=== PATIENT | male | born 1965 | race Caucasian/White ===

== ENCOUNTER 2022-05-23 08:18 | Outpatient (CLI) | payer BC ==
[2022-05-23 08:55] LABS: #Basophils 0.1 10x3/uL (0.0-0.2); #Eosinphils 0.1 10x3/uL (0.0-0.5); #Monocytes 0.4 10x3/uL (0.0-1.1); #Neutrophils 4.1 10x3/uL (1.5-8.4); %Basophils 0.8 % (0.0-2.0); %Eosinophils 1.6 % (0.0-6.0); %Lymphocytes 26.9 % (18.0-47.0); %Monocytes 6.1 % (0.0-10.0); %Neutrophils 64.3 % (40.0-75.0); Hemoglobin 15.5 g/dL (13.5-17.5); Mean Corpuscular HGB CONC 34.4 g/dL (32.0-36.0); Mean Corpuscular Hemoglobin 30.5 pg (27.0-33.0); Mean Corpuscular Volume 88.6 fl (81.2-95.1); Mean Platelet Volume 9.8 fl (7.4-10.4); Platelet Count 197 10x3/uL (150-450); RBC Distribution Width 12.7 % (11.5-14.5); Red Blood Cell (RBC) Count 5.08 10x6/uL (4.32-5.72); White Blood Cell (WBC) Count 6.4 10x3/uL (3.5-10.5)
== END 2022-05-23 08:19 | disposition home or self-care (01) ==
LOC: LABBT 08:18
PROVIDERS: ATTEND Surgery
DX: K40.90 Unilateral inguinal hernia, without obstruction or gangrene, not specified as recurrent (principal); Z20.822 Contact with and (suspected) exposure to COVID-19
CPT/HCPCS: 85025; 87811

== ENCOUNTER 2022-05-26 08:54 | Day surgery (SDC) | payer BC ==
[2022-05-24 13:03] VITALS: BMI 26.6
[2022-05-26] MEDS ORDERED: Bupivacaine 0.25% 10 ML VIAL ONE (10:03)
[2022-05-26] MEDS ORDERED: Bupivacaine/Epinephrine 0.25% 30 ML VIAL ONE (10:03)
[2022-05-26] MEDS ORDERED: fentaNYL Citrate/PF 100 MCG/2 ML SYRINGE ONE (10:13)
[2022-05-26] MEDS ORDERED: Sodium Chloride 0.9% 100 ML ONE (10:14)
[2022-05-26] MEDS ORDERED: CEFAZOLIN 2 GM VIAL ONE (10:14)
[2022-05-26] MEDS ORDERED: ePHEDrine 50 MG/ML VIAL ONE (10:42)
[2022-05-26] MEDS ORDERED: Ondansetron PF 4 MG/2 ML Vial ONE (10:42)
[2022-05-26] MEDS ORDERED: Ketorolac Tromethamine 30 MG/ML VIAL ONE (10:42)
[2022-05-26] MEDS ORDERED: PROPOFOL 200 MG/20 ML VIAL ONE (10:42)
[2022-05-26] MEDS ORDERED: Lidocaine 1% MPF 2 ML VIAL ONE ×2 (10:42)
[2022-05-26] MEDS ORDERED: Dexamethasone 20 MG/5 ML VIAL ONE (10:42)
[2022-05-26] MEDS ORDERED: HYDROcodone/Acetaminophen 5/325 mg Tablet ONE (12:34)
== END 2022-05-26 12:45 | disposition home or self-care (01) ==
LOC: SDC 08:54
PROVIDERS: ATTEND Surgery
PROC: 0YU60JZ Supplement Left Inguinal Region with Synthetic Substitute, Open Approach (ICD-10-PCS; principal; 2022-05-26)
DX: K40.90 Unilateral inguinal hernia, without obstruction or gangrene, not specified as recurrent (principal); Z79.899 Other long term (current) drug therapy; Z85.47 Personal history of malignant neoplasm of testis
CPT/HCPCS: C1781; J0690; J1100; J1885; J2405; J2704; J3490; S0020

== ENCOUNTER 2024-01-19 09:16 | Emergency (ER) | payer BC ==
[2024-01-19 10:31] LABS: #Basophils Less than 0.03 10x3/uL (0.0-0.2); #Eosinphils Less than 0.03 10x3/uL (0.0-0.7); %Basophils 0.2 % (0.0-1.0); %Eosinophils 0.1 % (0.0-10.0); %Lymphocytes 14.6 % (21.0-51.0); %Monocytes 4.1 % (0.0-10.0); %Neutrophils 80.6 % (42.0-75.0); Hematocrit 44.9 % (42.0-52.0); Hemoglobin 15.6 g/dL (14.0-18.0); Mean Corpuscular HGB CONC 34.7 g/dL (32.0-36.0); Mean Corpuscular Hemoglobin 31.6 pg (27.0-31.0); Mean Corpuscular Volume 90.9 fL (78.0-98.0); Mean Platelet Volume 9.5 fL (7.4-10.4); Platelet Count 193 10x3/uL (130-400); RBC Distribution Width 13.1 % (11.5-14.5); Red Blood Cell (RBC) Count 4.94 mill/uL (4.70-6.10)
[2024-01-19] MEDS ORDERED: hydrALAZINE 25 MG TAB ONE (10:32)
[2024-01-19 10:50] LABS: Anion Gap 16 mmol/L (10-20); BUN (Urea Nitrogen) 6 mg/dL (8.4-25.7); Bilirubin, Total 0.7 mg/dL (0.2-1.2); Calc. Creatinine Clearance 0 mL/min (70-130); Carbon Dioxide 23 mmol/L (22-29); Chloride 104 mmol/L (98-107); Estimated GFR 105; Glucose 116 mg/dL (70-105); Potassium 3.8 mmol/L (3.5-5.1); Sodium 139 mmol/L (136-145)
[2024-01-19 10:51] LABS: ALT (SGPT) 21 U/L (8-55); AST (SGOT) 22 U/L (5-34); Albumin 4.6 g/dL (3.5-5.0); Alkaline Phosphatase 47 U/L (40-110); Globulin 2.5 g/dL (2.4-3.5); Protein, Total 7.1 g/dL (6.0-8.3)
[2024-01-19 10:55] LABS: Troponin I Less than 0.010 ng/mL (< 0.028)
== END 2024-01-19 16:15 | disposition home or self-care (01) ==
LOC: ERS 09:16
DX: R20.2 Paresthesia of skin (principal); I10 Essential (primary) hypertension; R29.700 NIHSS score 0
CPT/HCPCS: 36415; 70450; 80053; 84484; 85025; 93005; 96360; 96361